=== PATIENT | female | born 1955 | race Caucasian/White ===

== ENCOUNTER → 2017-03-12 | Outpatient (CLI) | payer MEDICARE ==
[~2017-03-12] MED LIST: FEMARA2.5 MG PO; LIPITOR10 MG PO; MAXZIDE 25 MG-31 TA1 PO; SYNTHROID0.175 MG PO; VENLAFAXINE H37.5 MG PO
--- NOTE | 2017-03-12 10:39 | CARDIOVASCULAR REPORT ---
"Cerebrovascular Exam Indications: Follow-up carotid 433.10. IMPRESSIONS 1. The bilateral vertebral arteries are patent with normal antegrade flow. 2. Study suggests less than 20% stenosis involving the right internal carotid artery and the left internal carotid artery. No change from the study of 21-Jul-2013. Carotid duplex study. Complete study and Doppler flow study including spectral analysis, color and urbina scale imaging. Height: Height: 154.9cm. Height: 61in. Weight: Weight: 104.3kg. Weight: 229.5lb. Body mass index: BMI: 43.5kg/m^2. Body surface area: BSA: 2.18m^2. Location: Vascular laboratory. Patient status: Outpatient. Tables: Arterial flow: + +--------+--------+ |Location |V sys |V ed | + +--------+--------+ |Right CCA - proximal|96.6cm/s|21.2cm/s| + +--------+--------+ |Right CCA - distal |76.7cm/s|17cm/s | + +--------+--------+ |Right ECA |103cm/s |--------| + +--------+--------+ |Right ICA - proximal|72.3cm/s|27cm/s | + +--------+--------+ |Right ICA - mid |94.3cm/s|29.5cm/s| + +--------+--------+ |Right ICA - distal |77.1cm/s|29.1cm/s| + +--------+--------+ |Right vertebral |42.4cm/s|--------| + +--------+--------+ |Left CCA - proximal |160cm/s |33.8cm/s| + +--------+--------+ |Left CCA - distal |106cm/s |28.3cm/s| + +--------+--------+ |Left ECA |130cm/s |--------| + +--------+--------+ |Left ICA - proximal |62.9cm/s|21.4cm/s| + +--------+--------+ |Left ICA - mid |80.5cm/s|25.8cm/s| + +--------+--------+ |Left ICA - distal |68.5cm/s|25.1cm/s| + +--------+--------+ |Left vertebral |61cm/s |--------| + +--------+--------+ Velocity ratios: + + + + + + | |Right, V sys|Right, V ed|Left, V sys|Left, V ed| + + + + + + |Max ICA/dist CCA|1.23 |1.74 |0.76 |0.91 | + + + + + + (Report amended ) Electronically signed by: Tomi Bush [id number]"
== END ==
LOC: RT 08:00
DX: I65.23 Occlusion and stenosis of bilateral carotid arteries (principal)